=== PATIENT | male | born 1940 | race Caucasian/White ===

== ENCOUNTER 2024-05-09 07:50 | Day surgery (SDC) | payer MEDICARE, BC ==
[2024-05-02 11:53] LABS: BASOPHILS % (AUTO) 0.3 % (0-1); EOSINOPHILS # (AUTO) 0.2 X10'3 (0-0.9); EOSINOPHILS % (AUTO) 2.5 % (0-6); HEMATOCRIT 38.6 % (42.0-52.0); HEMOGLOBIN 12.6 g/dl (14.0-17.9); LYMPHOCYTES # (AUTO) 1.2 X10'3 (1.1-4.8); LYMPHOCYTES % (AUTO) 13.6 % (21-51); MEAN CORPUSCULAR HEMOGLOBIN 28.4 PG (27.0-31.0); MEAN CORPUSCULAR HGB CONC 32.7 g/dL (33.0-36.5); MEAN CORPUSCULAR VOLUME 86.9 FL (78-98); MEAN PLATELET VOLUME 7.4 FL (7.4-10.4); MONOCYTES # (AUTO) 0.6 X10'3 (0-0.9); MONOCYTES % (AUTO) 6.7 % (2-12); NEUTROPHILS # (AUTO) 6.7 X10'3 (1.8-7.7); NEUTROPHILS % (AUTO) 76.9 % (42-75); PLATELET COUNT 283 X10'3 (140-440); RED BLOOD COUNT 4.44 X10'6 (4.70-6.10); RED CELL DISTRIBUTION WIDTH 15.9 % (11.5-14.5); WHITE BLOOD COUNT 8.7 X10'3 (4.5-11.0)
[2024-05-02 12:05] LABS: ALANINE AMINOTRANSFERASE 23 U/L (12-78); ALBUMIN 3.3 G/DL (3.4-5.0); ALBUMIN/GLOBULIN RATIO 0.9 (1.1-1.5); ALKALINE PHOSPHATASE 80 IU/L (46-116); ANION GAP 9 (8-16); ASPARTATE AMINO TRANSFERASE 22 U/L (10-37); BILIRUBIN,TOTAL 0.5 MG/DL (0.1-1.0); BLOOD UREA NITROGEN 13 MG/DL (7-18); BUN/CREATININE RATIO 13.7 (10.0-20.0); CALCIUM 8.8 MG/DL (8.5-10.1); CHLORIDE 108 MMOL/L (99-107); CREATININE 0.95 MG/DL (0.60-1.10); GLUCOSE 104 MG/DL (70-104); POTASSIUM 3.4 MMOL/L (3.5-5.1); SODIUM 143 MMOL/L (135-145); TOTAL CARBON DIOXIDE 26.3 MMOL/L (24-32); eGFR 75 ML/MIN
[2024-05-09] VITALS (9 sets, daily range): BP systolic 137–158; BP diastolic 64–77; PULSE 47–62; RESP 12–17; TEMP 97.8; O2SAT 94–98
[~2024-05-09] VITALS: Ht 175.3 cm; Wt 76.2 kg
[2024-05-09] MEDS: ceFAZolin 2gm in dextrose, iso 50 ML IV ONE (05:30)
[2024-05-09] MEDS: DOCUMENT DATE & TIME OF BETA-BLOCKER PO ONE (05:30)
[~2024-05-09 07:50] MED LIST: ALFU10TA47 PO; AMLO5TAB16 PO; ASPI-529 PO; ATOR40TA PO; BUPIVAcaine 2.5mg/ml inj 50ml vial (contains preservative) ONE; CARV6.253 PO; DONE23TA7 PO; LIDOcaine 2% (20mg/ml) 5ml vial ONE; LISI40TA13 PO; MULT-1085 PO; SERT-433 PO
[2024-05-09] MEDS: famotidine 20mg tablet PO ONE (08:52)
[2024-05-09] MEDS: ringers solution, lacted 1,000 ML IV SCH (08:52)
[2024-05-09] MEDS ORDERED: midazolam 1 mg/ML 2ml injection ONE (09:56)
[2024-05-09] MEDS ORDERED: fentaNYL/PF 50MCG/1 ML 2ML syringe ONE (09:56)
[2024-05-09] MEDS ORDERED: propofol inj 20 ML IV ONE (10:16)
[2024-05-09] MEDS: BUPIVAcaine 2.5mg/ml inj 50ml vial (contains preservative) IJ ONE (10:17)
[2024-05-09] MEDS ORDERED: meperidine/PF 25mg/ml syringe IV PRN ×3 (10:20)
[2024-05-09] MEDS ORDERED: ondansetron/PF 4mg/2ml inj IV PRN (10:20)
[2024-05-09] MEDS ORDERED: ringers solution, lacted 1,000 ML IV SCH (10:20)
[2024-05-09] MEDS ORDERED: morphine 4 MG/ML inj SYRINge IV PRN (10:20)
[2024-05-09] MEDS ORDERED: proCHLORperazine 10 MG/2 ml inj IV PRN (10:20)
[2024-05-09] MEDS ORDERED: morphine 2 MG/ML inj. syringe IV PRN (10:20)
== END 2024-05-09 12:27 | disposition home or self-care (01) ==
LOC: PAS 07:50
PROVIDERS: ATTEND Orthopaedic Surgery Hand Surgery
DX: M24.542 Contracture, left hand (principal); R94.31 Abnormal electrocardiogram [ECG] [EKG]; I10 Essential (primary) hypertension; I25.10 Atherosclerotic heart disease of native coronary artery without angina pectoris; E78.00 Pure hypercholesterolemia, unspecified; Z86.73 Personal history of transient ischemic attack (TIA), and cerebral infarction without residual deficits; Z85.828 Personal history of other malignant neoplasm of skin; Z79.82 Long term (current) use of aspirin; Z79.899 Other long term (current) drug therapy; Z95.1 Presence of aortocoronary bypass graft; Z98.41 Cataract extraction status, right eye; Z98.42 Cataract extraction status, left eye; Z98.890 Other specified postprocedural states; Z88.6 Allergy status to analgesic agent
CPT/HCPCS: 26860; 36415; 80053; 82948; 85025; 93005; A4215; A4618; A7000; C1713; C1769; J0690; J2003; J2250; J2704; J3010; J3490; J7030; J7120; Z7506; Z7512; Z7610